=== PATIENT | female | born 1975 | race African-American/Black ===

== ENCOUNTER 2016-05-18 20:50 | Emergency (ER) | payer OTHER ==
[2016-05-18] MEDS ORDERED: TORADOL IM ONE (22:06)
[2016-05-18] MEDS ORDERED: PERCOCET-10 PO ONE (22:06)
--- NOTE | 2016-05-18 22:08 | PROVIDER DOCUMENTATION ---
HPI-Musculoskeletal Pain/Inj - GENERAL Source: patient - HX OF PRESENT ILLNESS-MUSKULOSKELTAL Quality of Pain: reports: aching Severity in ED: moderate Onset/Duration: 2 days ago Timing: still present Modifying Factors: improves with: nothing Any recent injury?: No Locality of Occurance: Home Similar Symptoms Previously?: Yes Recently seen or treated by another doctor?: No <Terrance Mackay - Last Filed: 05/18/16 22:09> <Garrick Lowe - Last Filed: 05/18/16 22:21> - GENERAL Chief Complaint: Extremity Pain Stated Complaint: rt knee pain Time Seen by Provider: 05/18/16 21:51 - HX OF PRESENT ILLNESS-MUSKULOSKELTAL Nature of Presenting Problem: 41 y/o F comes to the ED with right knee pain for 2 days. Pt denies recent injury but states 2 years ago she had surgery on the knee. (Terrance Mackay) Review of Systems - Adult - REVIEW OF SYSTEMS - ADULT Constitutional: denies: chills, fever Respiratory: denies: cough, shortness of breath, wheezing Musculoskeletal: reports: back pain (Chronic), joint pain. denies: bone pain <Terrance Mackay - Last Filed: 05/18/16 22:09> Past History - Adult - PAST MEDICAL HISTORY-ADULT Review of Records: reports: Old Records Reviewed, Nursing Assessment Review, Medications Reviewed Cardiovascular: reports: HTN Musculoskeletal: reports: chronic pain, intervertebral disc disease, neck/back injury - PRIOR SURGERIES/PROCEDURES Surgical/Procedure History: reports: hysterectomy - IMMUNIZATION STATUS Childhood Immunizations: See Nurse Assessment Flu Vaccine: See Nurse Assessment - SOCIAL HISTORY Smoking: non-smoker Living Situation: family <Terrance Mackay - Last Filed: 05/18/16 22:09> Physical Exam-Injury Related - Physical Exam-Injury Related Initial Vital Signs Reviewed: Yes General Appearance: appears well, alert, no apparent distress Eyes: PERRL/EOMI, pink conjunctivae Head, Ears, Nose, Mouth & Throat: moist mucous membranes, normal ENT inspection , TMs normal, pharynx normal Neck: non-tender, full range of motion, supple, normal inspection Respiratory: lungs clear, normal breath sounds, no pleuratic chest pain Cardiovascular: normal peripheral pulses, regular rate, rhythm Abdominal Exam: non tender, soft Back Exam: no CVA tenderness, no vertebral tenderness Extremity: normal range of motion, tenderness (lateral side worse with flexion) . negative: deformity, erythema Integumentary: normal color, warm/dry Neurologic: grossly normal, no motor/sensory deficits Psych/Mental Status: normal mood/affect, normal thought content, normal thought process, oriented x 3 <Terrance Mackay - Last Filed: 05/18/16 22:09> Progress - XRAY 1 XRAY: Right XRAY Study: Knee Impression: Normal XRAY Interpretation: Negative fx <Terrance Mackay - Last Filed: 05/18/16 22:09> <Garrick Lowe - Last Filed: 05/18/16 22:21> - PLAN OF CARE/RESULTS Progress/Plan/Lab Results: Orders Category Date Time Status KNEE 3 VIEWS RIGHT [RAD] Stat Exams 05/18/16 21:37 Taken Ketorolac [Toradol] Med 05/18/16 22:06 Discontinued 60 mg IM NOW ONE Oxycodone/APAP 10 mg/325 mg [Percocet-10] Med 05/18/16 22:06 Discontinued 1 each PO NOW ONE Vital Signs Temp Pulse Resp BP Pulse Ox 05/18/16 21:19 97.6 F 76 18 142/94 99 Sulfa (Sulfonamide Antibiotics) [Sulfa(Sulfonamide Antibiotics)] Adverse Reaction (Verified 05/18/16 21:27) breathing difficulty\rash Amlodipine [Norvasc] 10 mg PO DAILY #30 tablet 08/06/15 Buspirone HCl [Buspar] 5 mg PO BID 05/18/16 Gabapentin 800 mg PO TID 05/18/16 Losartan [Cozaar] 50 mg PO BID 05/18/16 Metformin HCl [Fortamet] 500 mg PO DAILY 05/18/16 Metoprolol [Lopressor] 25 mg PO BID 05/18/16 Pravastatin Sodium 20 mg PO DAILY 05/18/16 fffff (Terrance Mackay) Procedures - SPLINTING Right Lower Extremity Pre-Procedure Neurovascular Exam: Intact Pre-Fabricated Splint: Knee Immobilizer, Other (crutches) Applied By: ED Nurse Assisted By: ED Nurse Post Procedure Neurovascular Exam: Intact <Terrance Mackay - Last Filed: 05/18/16 22:09> Departure - Departure Time of Disposition Order: 22:09 Certified Medical Emergency: Emergent <Terrance Mackay - Last Filed: 05/18/16 22:09> - Departure Time of Disposition Order: 22:10 Certified Medical Emergency: Emergent <Garrick Lowe - Last Filed: 05/18/16 22:21> - Departure DIAGNOSIS: Knee pain, right anterior Disposition: HOME 01 Condition: Stable Additional Instructions: Follow up with Dr Rosa ED Follow Up Instructions: You have been treated by a care provider in the Emergency Department. These instructions are being provided to you so you can have an understanding of how to care for yourself upon discharge. Upon discharge from the Emergency Department, you are responsible for making arrangements for follow-up care by a physician of your choice. Take all prescribed medications as directed. Return to the Emergency Department immediately for any new or worsening symptoms. You may call the Physician Referral phone number at [phone] to obtain a list of Physicians who are taking new patients. Prescriptions: Methocarbamol [Robaxin-750] 750 mg PO TID #30 tablet Ibuprofen/Hydrocodone [Vicoprofen 200/7.5 mg] 1 each PO Q4H PRN PRN #20 tablet PRN Reason: Pain Referrals: None,PCP [Primary Care Provider] - Madelyn Rosa MD [STAFF PHYSICIAN] - Attestation - Scribe Verification/Attestation Scribe:: Terrance Mackay Acting as Scribe for:: Garrick Lowe Scribe documention review:: This chart was documented by a scribe and accurately reflects the service the provider performed and the decisions made by the provider. <Terrance Mackay - Last Filed: 05/18/16 22:09> Physician Attestation
[2016-05-18 23:09] VITALS: BP 148/72
--- NOTE | 2016-05-19 08:35 | Diag Imaging Result Document ---
PROCEDURE NAME: KNEE 3 VIEWS RIGHT - 05/18/2016 PLAIN RADIOGRAPHS OF THE RIGHT KNEE, 3 VIEWS: COMPARISON: 02/16/2015. FINDINGS: There is mild tricompartmental degenerative arthropathy with small marginal osteophyte formation at all 3 compartments. There is, perhaps, very minimal narrowing of the medial joint space that is stable. No definite fracture, dislocation, or intrinsic osseous lesion is appreciated. Surrounding soft tissues are grossly unremarkable. IMPRESSION: Approximately stable tricompartmental degenerative arthropathy as described.
== END 2016-05-18 23:15 | disposition home or self-care (01) ==
LOC: ED 20:50
DX: M25.561 Pain in right knee (principal); G89.29 Other chronic pain; M54.9 Dorsalgia, unspecified; I10 Essential (primary) hypertension
CPT/HCPCS: 96372; J1885